=== PATIENT | male | born 1945 | race Caucasian/White ===

== ENCOUNTER → 2016-12-28 | Outpatient (CLI) | payer MEDICARE, BC | LOC: KOH-I 12-24 08:30 | DX: R10.33 Periumbilical pain (principal); C61 Malignant neoplasm of prostate; D07.5 Carcinoma in situ of prostate; E78.2 Mixed hyperlipidemia; F41.1 Generalized anxiety disorder; I10 Essential (primary) hypertension; K21.9 Gastro-esophageal reflux disease without esophagitis; R10.817 Generalized abdominal tenderness; Z98.890 Other specified postprocedural states | CPT/HCPCS: 74177; Q9962 ==